=== PATIENT | female | born 1980 | race Caucasian/White ===

== ENCOUNTER → 2016-11-16 | Outpatient (CLI) | payer OTHER ==
--- NOTE | 2016-11-16 11:39 | DX ---
Left Hand, Three Views History: Pain post trauma. Date of injury November 12, 2016. Fall. Pain is at distal second and third metacarpal. Findings: No fracture or dislocation is identified. Specifically the distal second and third metacarp als and metacarpophalangeal joints look normal. There is either degenerative cystic change or erosion involving the bases of the second and third metacarpals, as well as the proximal carpal row. The uln ar styloid process is intact. Overall mineralization is normal. Impression: No acute posttraumatic abnormality identified. Please see above. Results called and discussed with LEIGH ANN Villagomez MD at 11/16/2016 11:35
== END ==
LOC: BMCIMAGING 11:17
PROVIDERS: ATTEND Physician Assistant
DX: M79.642 Pain in left hand (principal); W19.XXXA Unspecified fall, initial encounter

== ENCOUNTER → 2017-11-30 | Outpatient (CLI) | payer OTHER | LOC: FIMAGING 12:22 | PROVIDERS: ATTEND Advanced Practice Midwife | DX: O09.522 Supervision of elderly multigravida, second trimester (principal); O43.122 Velamentous insertion of umbilical cord, second trimester; Z3A.20 20 weeks gestation of pregnancy; Z98.891 History of uterine scar from previous surgery ==

== ENCOUNTER 2018-04-12 05:30 | Inpatient (IN) | payer OTHER ==
--- NOTE | 2018-03-30 22:10 | PDGENHP ---
History and Physical - Chief Complaint preop for Repeat C/S on 04/12/18 - History of Present Illness 38 yo at 37w2d by LMP c/w 8 wk US, presents for pre-op visit for 3rd C/S scheduled for 04/12/18 at 0730. TAMARA 04/18/18. course has been uncomplicated. care with [facility] since the first trimester. Preg c/b: AMA - neg NIPT Hx LGA - 97%ile at 20 wk scan, 92%ile at 32wk scan, 1 hr GTT 92 Marginal cord insertion - no significant effect on growth at 32 wk scan hx 2 prior C/S - both after PROM, P1 at 41w3d, P2 at 39w3d, elects for repeat this time. labs: All normal including neg Innatal and Standard panel. 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 Written informed consent obtained, including a blood transfusion consent. Pre-op instructions including NPO x 8 hr, water OK 6 hour prior, reviewed. Given original consents, and preop folder with instructions to bring to hospital day of surgery. Humera Etienne MD, FACOG [facility] History Information - Allergies/Home Medication List Allergies/Adverse Reactions: No Known Drug Allergies Allergy (Verified 03/30/18 21:30) I have personally reviewed and updated: family history, medical history, social history, surgical history Review of Systems Review of Systems: ROS: 10pt was reviewed & negative except for what was stated in HPI & below Physical Exam Physical Exam:
[2018-04-12] MEDS ORDERED: CITRIC ACID/SODIUM CITRATE 30 ML UDCUP PO ONE (05:58)
[2018-04-12] MEDS ORDERED: LR 500 ML IV ONE (05:58)
[2018-04-12] MEDS ORDERED: LR 1,000 ML IV SCH (05:58)
[2018-04-12] MEDS ORDERED: ceFAZolin 2 GM/DEXTROSE 100 ML IV ONE (05:58)
[2018-04-12] MEDS ORDERED: AMMONIA AROMATIC 1 EACH AMP IH ONE ×2 (06:22→07:24)
[2018-04-12] MEDS ORDERED: MISOPROSTOL 200 MCG TAB ONE ×2 (06:22→07:24)
[2018-04-12] MEDS ORDERED: OXYTOCIN 10 UNIT/ML VIAL ONE ×2 (06:22→07:24)
[2018-04-12 06:24] LABS: PLATELET COUNT 243 10^3/uL (150-400)
[2018-04-12] MEDS ORDERED: LIDOCAINE 1% 300 MG/30 ML SDV ONE (07:23)
[2018-04-12] MEDS ORDERED: OLIVE OIL 118 ML BTL ONE (07:23)
[2018-04-12] MEDS ORDERED: TERBUTALINE SULFATE 1 MG/ML VIAL ONE (07:24)
--- NOTE | 2018-04-12 07:35 | PREANESOB ---
Obstetric Pre-Anesthesia Info - General Info Proposed Procedure: Repeat C Section. : 3 Para: 2 TAMARA: 04/17/18 Gestational Age: 39 week(s) and 2 day(s) - Info Status: Full Term Monitors: External FHR Baseline (bpm): 150 FHR Pattern: Reassuring - Labor Status Section History: Repeat Indications for Current Section: Elective/Repeat Labor Epidural: No Anesthesia ROS: C Section x 2 with regional anesthesia. Allergies/Adverse Reactions: Allergy/AdvReac Type Severity Reaction Status Date / Time No Known Drug Allergies Allergy Verified 03/30/18 21:30 Home Medications: Medication Instructions Recorded Pnv Comb.no.44/Iron/Folic Acid 1 each PO 04/12/18 [Novanatal Tablet] Visit Medications: Generic Name Dose Route Start Last Admin Trade Name Freq PRN Reason Stop Dose Admin Lactated Ringer's 1,000 mls @ 125 mls/hr 04/12/18 05:58 Lr IV 04/13/18 05:57 CONT BRANDI Discontinued Medications Generic Name Dose Route Start Last Admin Trade Name Freq PRN Reason Stop Dose Admin Ammonia (Aromatic Spirit) Confirm 04/12/18 06:22 Ammonia Aromatic Administered 04/12/18 06:23 Dose 1 each IH .STK-MED ONE Ammonia (Aromatic Spirit) Confirm 04/12/18 07:24 Ammonia Aromatic Administered 04/12/18 07:25 Dose 1 each IH .STK-MED ONE Citric Acid/Sodium Citrate 30 ml 04/12/18 05:58 Bicitra PO 04/12/18 05:59 ONCALL ONE Cefazolin Sodium/Dextrose 100 mls @ 200 mls/hr 04/12/18 05:58 Ancef 2 Gm IV 04/12/18 06:27 ONCALL ONE Protocol Lactated Ringer's 500 mls @ 0 mls/hr 04/12/18 05:58 Lr IV 04/12/18 05:59 ONCE ONE As Directed Lidocaine HCl Confirm 04/12/18 07:23 Lidocaine Hcl 1% Administered 04/12/18 07:24 Dose 300 mg .ROUTE .STK-MED ONE Misoprostol Confirm 04/12/18 06:22 Cytotec Administered 04/12/18 06:23 Dose 1,000 mcg .ROUTE .STK-MED ONE Misoprostol Confirm 04/12/18 07:24 Cytotec Administered 04/12/18 07:25 Dose 1,000 mcg .ROUTE .STK-MED ONE [place] Oil Confirm 04/12/18 07:23 Sweet Oil Administered 04/12/18 07:24 Dose 118 ml .ROUTE .STK-MED ONE Oxytocin Confirm 04/12/18 06:22 Pitocin Administered 04/12/18 06:23 Dose 30 unit .ROUTE .STK-MED ONE Oxytocin Confirm 04/12/18 07:24 Pitocin Administered 04/12/18 07:25 Dose 40 unit .ROUTE .STK-MED ONE Terbutaline Sulfate Confirm 04/12/18 07:24 Brethine Administered 04/12/18 07:25 Dose 1 mg .ROUTE .STK-MED ONE - Anesthesia History Response to Local Anesthetics: Normal Anesthesia & Operative History: No Prior Problems Family Anesthesia History: Negative - Social History Substance Use/Abuse: Denies - Vital Signs Latest Vital Signs (Nursing): Temp Pulse Resp BP Pulse Ox 36.2 C 70 16 122/77 H 97 04/12/18 06:27 04/12/18 06:27 04/12/18 06:27 04/12/18 06:27 04/12/18 06:27 Blood Pressure: 122/77 Heart Rate: 75 Height/Weight (Nursing): Height 172.72 cm Weight 88.451 kg - Focused Exam Neck exam: FROM Mallampati Score: Class 1 Mouth exam: normal dental/mouth exam Pulmonary: no respiratory distress Cardiovascular: regular rate and rhythym Labs: 04/12/18 06:10 Patient ABO/Rh O POSITIVE 04/12/18 06:10 - Plan Anesthetic Plan: SAB Consent Signed and on Chart: Yes Patient/Guardian Understands and Agrees to Plan: Yes
[2018-04-12] MEDS ORDERED: morphINE PF 5 MG/10 ML INJ ONE (07:40)
[2018-04-12] MEDS ORDERED: fentaNYL 100 MCG/2 ML INJ ONE (07:41)
--- NOTE | 2018-04-12 07:51 | PDHPUP ---
History & Physical Update H&P update statement: This history and physical update is based on an assessment of the patient which was completed after admission or registration (within 24 hours), but prior to the surgery/procedure. H&P update: H&P reviewed & patient examined (pt desires tubal removal also - for undesires fertility), no change in patient's condition since H&P completed
[2018-04-12] MEDS ORDERED: OXYTOCIN 100 UNITS/10 ML VIAL ONE (08:20)
[2018-04-12] MEDS ORDERED: DEXAMETHASONE 4 MG/ML VIAL ONE ×2 (08:20)
[2018-04-12] MEDS ORDERED: PHENYLEPHRINE HCL 100 MCG/ML SYR ONE ×2 (08:21→08:38)
[2018-04-12] MEDS ORDERED: ONDANSETRON 4 MG/2 ML VIAL ONE ×2 (08:21)
[2018-04-12] MEDS ORDERED: SCOPOLAMINE HYDROBROMIDE 1 MG/3 DAYS PATCH TD ONE ×2 (09:43→10:24)
--- NOTE | 2018-04-12 10:01 | POSTOPPROG ---
Post Op Note Date of Operation: 04/12/18 Surgeon: Humera Etienne [facility] Vat Worker: Azra Saini, and Elio Ramírez Anesthesiologist: Leroy Odom Anesthesia: Spinal Pre-op Diagnosis: Elective repeat section, undesired fertility Post-op Diagnosis: same Indication: 2 prior sections and undesired fertility. Procedure: Repeat low transverse section and bilateral salpingectomy Findings: Normal appearing uterus, tubes and ovaries, delivery of 3948gm male infant Inf/Abcess present in the surg proc area at time of surgery?: No EBL: 500-1000 Total fluids administered: 3100 ml Complications: none Specimen(s): Bilateral Fallopian tubes
[2018-04-12] MEDS ORDERED: PROMETHAZINE HCL 25 MG/ML INJ IVP PRN (10:02)
[2018-04-12] MEDS ORDERED: SIMETHICONE 80 MG TAB CHEW PO PRN (10:02)
--- NOTE | 2018-04-12 10:15 | OBDEL ---
Info Type: Repeat Presentation at Delivery: Vertex L&D Analgesia/Anesthesia Type: Spinal GBS+: No Intrapartum Medications: Discontinued Medications Generic Name Dose Route Start Last Admin Trade Name Nadine PRN Reason Stop Dose Admin Citric Acid/Sodium Citrate 30 ml 04/12/18 05:58 04/12/18 08:57 Bicitra PO 04/12/18 05:59 Not Given ONCALL ONE Cefazolin Sodium/Dextrose 100 mls @ 200 mls/hr 04/12/18 05:58 04/12/18 07:45 Ancef 2 Gm IV 04/12/18 06:27 100 mls ONCALL ONE Administration Protocol - Care Provider Inspector [employer]/ASSEMBLER [employer]ING: Homa [place] Indications for Delivery: Elective (2 prior sections) Operative Report - Delivery Pre-op Diagnoses: Elective repeat section, and desired ovarian onco- reduction Post-op Diagnoses: same History of Prior Section: Yes Number of Prior Sections: 2 Nulliparous Prior to Delivery: No Indications for Prior Section: Elective/Repeat Indications for Current Section: Elective/Repeat Procedure: Scheduled, Tubal Ligation Surgeon: Humera Etienne Hoop Bending Machine Operator: Azra Saini (Elio Ramírez, second first aid officer) Anesthesiologist: Leroy Odom Complications: Nucal Cord Findings: Normal appearing uterus, tubes and ovaries. Bilateral tubes removed and sent to pathology. Data TAMRAA: 04/17/18 Gestational Age: 39 week(s) and 2 day(s) Viveros Delivery Date: 04/12/18 Delivery Time: 08:32 Sex of : Male [place] Weight (gm): 3948 g Score (1 Min): 8 Score (5 Min): 9 ICD10 Worksheet Patient Problems: Problems Problem Status Onset History of 2 sections Acute - ICD10 Problem Qualifiers (1) History of 2 sections
[2018-04-12] MEDS ORDERED: NALOXONE HCL 0.4 MG/ML INJ IVP PRN (10:20)
[2018-04-12] MEDS ORDERED: ONDANSETRON 4 MG/2 ML VIAL IVP PRN (10:20)
[2018-04-12] MEDS ORDERED: PHENYLEPHRINE HCL 100 MCG/ML SYR IVP PRN (10:20)
--- NOTE | 2018-04-12 10:20 | POSTANESTH ---
Post Anesthetic Evaluation Cardiovascular Status: Normal, Stable Respiratory Status: Normal, Stable, Similar to Pre-op Cond. Level of Consciousness/Mental Status: Can Participate in Eval, Alert and Oriented Pain Control: Adequate, Prn Tx Ordered Nausea/Vomiting Control: Inadeq, Add Tx Reqired Complications Possibly Related to Anesthesia: None Noted (Scopolamine patch administered for nausea.)
--- NOTE | 2018-04-12 11:03 | GOP ---
[f rep st] OPERATIVE REPORT DATE OF OPERATION: 04/12/2018 SURGEON: Humera Etienne MD SUPERINTENDENT OF SCHOOLS: Azra Saini MD, needed for adequate retraction and exposure. SECOND SUPERINTENDENT OF SCHOOLS: Elio Gaines MD, assistant site manager ANESTHESIA: Spinal. ANESTHESIOLOGIST: Leroy Odom MD. PREOPERATIVE DIAGNOSIS: Elective repeat section and undesired fertility. POSTOPERATIVE DIAGNOSIS: Elective repeat section and undesired fertility. PROCEDURE PERFORMED: Repeat low-transverse section and bilateral salpingectomy. FINDINGS: Normal appearing uterus, tubes, and ovaries. Delivery of a male , from cephalic presentation, OA, with Apgars of 8 and 9, 3948gm. ESTIMATED BLOOD LOSS: 800 mL. INDICATIONS: Two prior sections and undesired fertility along with desired ovarian onco-reduction. DESCRIPTION OF PROCEDURE: Written informed consent was reviewed with the patient in the preoperative area. This was updated to include the desired bilateral salpingectomy as we had previously discussed in the office. She was taken to the operating room where spinal anesthetic was placed. When this was deemed adequate, she was placed in the dorsal lithotomy position. She was given 2 g of Ancef by IV. A urinary catheter was placed. Her abdomen was sterilely prepared and draped in the standard fashion after obtaining heart tones. A time-out was performed. A skin incision was made sharply and taken down to the fascia. The fascia was incised on either side of the midline. The fascial incision was extended sharply laterally on each side. The rectus muscles were dissected away bluntly from the overlying fascia, superiorly and inferiorly to the incision. The rectus muscles were in the midline. The peritoneum was grasped and entered bluntly. The peritoneal opening was enlarged in blunt fashion. There was significant scar tissue of the bladder to the lower uterine segment. The decision was made not to create a bladder flap. The hysterotomy was made higher than the bladder. It was extended laterally with bandage scissors. The membranes were ruptured with release of clear fluid. The vertex was then able to be delivered through the hysterotomy with the assistance of fundal pressure. The remainder of the fetus was then also able to be delivered easily with the assistance of fundal pressure. Bulb suction to the mouth and nose were performed along with stimulating and drying the baby while waiting for the 1 minute delayed cord clamping. The cord was then clamped, cut, and the was handed to the awaiting nurse practitioner. With the assistance of uterine massage, the placenta was then delivered. The uterine cavity was cleared of all clots and debris with a lap sponge x2. The uterus was then exteriorized. The hysterotomy was closed first in a running locked fashion with 0 Monocryl. A second imbricating layer was placed. Two [id number] sutures of 0 Vicryl were used to obtain excellent hemostasis. Attention was then turned to the tubes. 0 plain gut was used to ligate each tube near the cornua. The 0 plain gut was also used to tie off any significant vessels in the mesosalpinx. Cautery was then used to excise along the mesosalpinx and then across the cornua distal to the sutures on each side. The tubes were then handed off. Excellent hemostasis was noted at the bilateral tubal sites. The uterus was then replaced into the abdomen after irrigation of the posterior cul-de-sac was performed. Cautery was then used to obtain hemostasis of the hysterotomy. The tubal sites were again surveyed and hemostasis was noted. The fascia was then closed with 0 PDS in a running fashion with 2 separate sutures and knots were tied in the midline. Argenis's fascia was closed with 3-0 Monocryl in a running fashion. The skin was closed with 4-0 Monocryl in a running subcuticular fashion. Mastisol was applied around the incision. Steri-Strips were then placed lengthwise and perpendicular across the entire incision. The incision was then covered with a sterile dressing and tape. Fundal pressure and massage were performed to remove any remaining clots in the lower uterine segment. Sponge, lap, and needle counts were correct x2. The patient was taken to the recovery room in stable condition. IV FLUIDS: 3100 mL. URINE OUTPUT: 200 mL. COMPLICATIONS: None. /[id number]/MODL MTDD
[2018-04-12] MEDS: KETOROLAC 30 MG/1 ML SDV IVP SCH ×3 (11:18→23:57)
[2018-04-12] MEDS: ACETAMINOPHEN 325 MG TAB PO SCH ×3 (17:45→22:58)
[2018-04-13] MEDS: ACETAMINOPHEN 325 MG TAB PO SCH ×3 (04:49→18:03)
[2018-04-13] MEDS: KETOROLAC 30 MG/1 ML SDV IVP SCH (05:50)
--- NOTE | 2018-04-13 07:46 | OBPP ---
Progress Note Assessment/Plan: Assessment: POD1 s/p scheduled RLTCS and BTL. Routine cares, postop labs look good this AM. VS stable/reassuring. Potentially home tomorrow. Rh positive, Rubella immune. Subjective/ Course: Sherita is doing well this morning, no issues overnight, pain well controlled, incision not bothering her. BF going well. Objective: 04/13/18 04:45 Patient ABO/Rh O POSITIVE 04/12/18 06:10 Temp Pulse Resp BP Pulse Ox 36.2 C 47 L 16 91/54 L 97 04/13/18 04:00 04/13/18 05:53 04/13/18 05:53 04/13/18 04:00 04/13/18 05:53 Laboratory Tests 04/12/18 04/13/18 06:10 04:45 Hct 38.0 34.2 L Uterine Position/Fundal Height: At Umbilicus Uterine Tone: Firm Physical Exam - Physical Exam Abdomen: incision (CDI with Steristrips, dried blood)
[2018-04-13] MEDS: oxyCODONE IR 5 MG TAB PO PRN ×3 (09:08→21:52)
[2018-04-13] MEDS ORDERED: PATCH REMOVAL 1 EA PATCH TD ONE (10:24)
[2018-04-13] MEDS: DOCUSATE SODIUM 100 MG CAP PO PRN (11:48)
[2018-04-13] MEDS: IBUPROFEN 600 MG TAB PO SCH ×2 (11:48→18:10)
[2018-04-14] MEDS: IBUPROFEN 600 MG TAB PO SCH ×2 (01:07→06:30)
[2018-04-14] MEDS: ACETAMINOPHEN 325 MG TAB PO SCH ×2 (01:58→08:20)
[2018-04-14] MEDS: oxyCODONE IR 5 MG TAB PO PRN ×2 (08:15→10:36)
[2018-04-14] MEDS: DOCUSATE SODIUM 100 MG CAP PO PRN (08:17)
[2018-04-14 08:25] VITALS: BP 105/74
[2018-04-14] MEDS ORDERED: FERROUS SULFATE 325 MG TAB PO SCH (09:00)
--- NOTE | 2018-04-14 10:06 | OBGCSDC ---
General Delivery Information - General Info : 3 Para: 3 Abortions: 0 Type: Repeat L&D Analgesia/Anesthesia Type: Spinal Admission Date: 04/12/18 Labs: Patient ABO/Rh O POSITIVE 04/12/18 06:10 Hct 34.2 % (38.0-47.0) L 04/13/18 04:45 - Hospital Course : Sherita is doing well this morning, no issues overnight, pain well controlled, incision not bothering her. BF going well. 04/14/18 10:04 S) Pt doing well, reports min pain and bleeding. she is ambulating and voiding without difficulty. She is . She desires discharge home today. O) VSS, afebrile constitutional: WNWF, A&Ox3 HEENT: normocephalic, atraumatic, supple Heart: RRR, No murmur Chest: CTA-B Abdomen: Soft, nontender incision: C/D/I, no erythema, no drainage Uterus: Firm at U-2 Lochia: Minimal rubra Extremities: Trace edema, and negative Gladis's sign Neuro: Grossly normal A) 38-year-old S/P repeat c/s with BTL POD#2 P) Discharge home today Continue Pelvic rest x6wks Discussed danger signs (infection, preeclampsia, depression, heavy bleeding, etc ) RTO in 2/4/6 weeks - Delivery Providers Surgeon: Humera Etienne Trousseau Consultant: Azra Saini (Elio Ramírez, second health care assistant) Anesthesiologist: Leroy Odom - Delivery Number of Prior Sections: 2 Indications for Current Section: Elective/Repeat Surgical Procedures: Scheduled, Tubal Ligation Intra-op Complications: Nucal Cord Data TAMARA: 04/17/18 Gestational Age: 39 week(s) and 4 day(s) Viveros Delivery Date: 04/12/18 Delivery Time: 08:32 Sex of Infant: Male [place] Weight (gm): 3948 g Score (1 Min): 8 Score (5 Min): 9 Discharge Information - Discharge Information Prescriptions: oxyCODONE IR [Oxycodone Ir (*)] 5 mg PO Q4HRS PRN #15 tab PRN Reason: Pain, Severe Ibuprofen [Motrin (*)] 600 mg PO Q6HRS #60 tab Ferrous Sulfate [Ferrous Sulf 325 MG (*)] 325 mg PO BID #60 tab Condition: Good
== END 2018-04-14 10:48 | disposition home or self-care (01) | DRG 766 ==
LOC: FLD 05:30 → FOB 12:03
PROVIDERS: ADMIT Hospitalist; ATTEND Hospitalist
DX: O34.219 Maternal care for unspecified type scar from previous cesarean delivery (principal); Z37.0 Single live birth; Z3A.39 39 weeks gestation of pregnancy; O69.82X0 Labor and delivery complicated by other cord entanglement, without compression, not applicable or unspecified
CPT/HCPCS: J0690; J1100; J1885; J2274; J2370; J2405; J2590; J3010; J3105